=== PATIENT | female | born 1945 | race Caucasian/White ===

== ENCOUNTER 2023-08-06 16:11 | Emergency (ER) | payer MEDICARE, SELFPAY ==
[2023-08-06 16:20] VITALS: BP 167/73; PULSE 73; RESP 16; TEMP 37.1; O2SAT 99
--- NOTE | 2023-08-06 16:40 | ED.FEMALEGU ---
HPI - Female Genitourinary General Chief complaint: Urogenital-Female Stated complaint: poss bladder infection Time Seen by Provider: 08/06/23 16:40 Source: patient Mode of arrival: ambulatory Limitations: no limitations History of Present Illness HPI Narrative: 78 yo F presents with c/o urinary frequency, dysuria off and on for 2 weeks. Afebrile. No ABD or back pain. All systems reviewed and negative except as noted above. Related Data Allergies Allergy/AdvReac Type Severity Reaction Status Date / Time erythromycin base Allergy Unknown Verified 09/29/10 12:50 Penicillins Allergy Unknown Verified 09/29/10 12:49 Sulfa (Sulfonamide Allergy Unknown Verified 09/29/10 12:50 Antibiotics) Review of Systems Review of Systems: CONSTITUTIONAL: Denies fever, chills, or sweats. EYES: Denies visual changes, redness, or discharge. ENT: Denies rhinorrhea, congestion, sore throat, or otalgia. CARDIOVASCULAR: Denies chest pain, palpitations, or edema. RESPIRATORY: Denies cough or dyspnea. GASTROINTESTINAL: Denies abdominal pain, nausea, vomiting, or diarrhea. GENITOURINARY: Reports dysuria. Denies hematuria. SKIN: Denies rash or itching. MUSCULOSKELETAL: Denies back pain, joint pain, or myalgia. NEUROLOGIC: Denies headache, numbness, or weakness. PSYCHIATRIC: Denies anxiety or depression. All other systems reviewed are negative, except as documented in HPI. FORMERLY [facility], [facility]–1983 Family History Family History (Updated 01/10/16 @ 23:19 by DOCTOR UNKNOWN) Mother Hypertension Family history of elevated blood lipids Sibling Family history of elevated blood lipids Father Family history of diabetes mellitus in first degree relative Patient's father is Social History Social History Alcohol intake: never Comments At time of signature, agree with nursing past medical, surgical, social and family history. There is no relevant family history pertinent to the presenting complaint. Exam Narrative: GENERAL: This is a well-nourished, well-developed patient, in no apparent distress. HEAD: normocephalic, atraumatic. EYES: PERRL. Sclera clear/white. Vision is grossly intact. EARS: External ears normal NOSE: External nose normal NECK: Neck supple, non-tender without lymphadenopathy, masses or thyromegaly. CARDIOVASCULAR: Regular rate and rhythm without murmurs, gallops, or rubs. RESPIRATORY: Clear to auscultation. Breath sounds equal bilaterally. No wheezes, rales, or rhonchi. SKIN: warm, Dry, intact with no suspicious lesions or rash, good texture and turgor. NEURO: awake, alert, and oriented to person, place and time. There were no obvious focal neurologic abnormalities. EXTREMITIES: No joint tenderness, effusion, or edema noted. Course Course Level of Care: Express Care Visit Vital Signs Vital signs: Vital Signs Temperature 37.1 C 08/06/23 16:20 Pulse Rate 73 08/06/23 16:20 Respiratory Rate 16 08/06/23 16:20 Blood Pressure 167/73 H 08/06/23 16:20 Pulse Oximetry 99 08/06/23 16:20 Oxygen Delivery Room Air 08/06/23 16:20 Temperature 37.1 C 08/06/23 16:20 Pulse Rate 73 08/06/23 16:20 Respiratory Rate 16 08/06/23 16:20 Blood Pressure 167/73 H 08/06/23 16:20 Pulse Oximetry 99 08/06/23 16:20 Oxygen Delivery Room Air 08/06/23 16:20 Reviewed MDM - Female Genitourinary MDM Narrative Medical decision making narrative: Patient is aware of diagnosis, understands and agrees to treatment plan. Anticipatory guidance given. Patient agrees to follow-up as directed and is aware of reasons to seek care at the emergency department. Portions of this record may have been created with voice recognition software Differential Diagnosis Differential diagnosis: Likely urinary tract infection Lab Data Labs: Urine Glucose Negative Reference Range: Negative Urine Bilirubin Negative
== END 2023-08-06 16:54 | disposition home or self-care (01) ==
PROVIDERS: Emergency Provider Nurse Practitioner Family; PCP Internal Medicine
DX: N39.0 Urinary tract infection, site not specified (principal)
CPT/HCPCS: 81003; 87086; 99213; G0463